=== PATIENT | female | born 1985 | race Caucasian/White ===

== ENCOUNTER 2016-12-07 15:09 | Emergency (ER) | payer MEDICAID ==
[~2016-12-07] VITALS: Ht 160 cm; Wt 54.4 kg
--- NOTE | 2016-12-07 15:30 | Emergency Room Report ---
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 N Clinical Suspician of Infection? N Mental Status: 1 - Regular (Normal Baseline) Sepsis Risk:Low Sepsis Risk Have you (or family members/close friends) recently traveled outside the [place]? N If Yes, where/when: Have you had exposure to infectious disease within the past month? TB? Other? Specify: Patient is brought in by police the police were called for agitation per report at a recovery center. The police state her report that the patient was drinking alcohol and took some suboxone. The patient states she took some Seroquel and some Xanax she tells me she took several pills of each but that she is not suicidal. She states she doesn't know when she took them today. She states she doesn't want to tell me how much alcohol she drank. He denies any pain she states she is upset that her service dog is not here. States she has history of PTSD. He does not tell me what substance she was at the recovery center for. Denies any pain denies any homicidal or suicidal ideations and denies hearing any voices or hallucinations. ALLERGIES Coded Allergies: Unable to Assess (12/07/16) History Medical History General More? Yes Additional hx: UTD, PT NON-COOPERATIVE Immunization Hx Ped.Immunizations UTD Yes DT/Tetanus 1-4 Years Ago Surgical Hx Previous Surgery?Y CHARGE ENTRY Hx LMP N/A Social History Smoking Hx Smoker: Unknown if Ever Smoked Tobacco: No Review of Systems All Other Systems Reviewed and Negative Physical Exam Vital Signs Vital Signs Date Time Temp Pulse Resp B/P Pulse O2 O2 Flow FiO2 Ox Delivery Rate 12/07 1515 98.0 72 18 137/84 98 General Appearance: Nontoxic Head: Normocephalic, without obvious abnormality, atraumatic. Eyes: conjunctiva/corneas clear ENT: Mucous membranes moist. Neck: No jugular venous distention. Cardiac: regular rate and rhythm Lungs: Clear to auscultation bilaterally Abdomen: Nontender, Nondistended, positive bowel sounds, no rebound : No CVA tenderness Extremities: no edema Musculoskeletal: No chest wall tenderness Skin: No rashes or lesions to exposed skin. Neurologic: Alert. No gross focal deficits Psychiatric: Anxious affect (Mary BUSH, Ryan) General Appearance normal appearance Respiratory Status No: respiratory distress. Cardiovascular normal exam Neurologic alert Medical Decision Making LABS/Meds/Orders Pt receiving controlled substance in ED? No Benedict was queried for this patient? No Comment ER staff states etoh less than 300 is ok for residential per protocol Results/Orders Laboratory Tests 12/07/16 1735: Opiates Screen NEGATIVE, Urine Methadone Screen NEGATIVE, Barbiturates NEGATIVE, Phencyclidine Screen NEGATIVE, Amphetamines Screen NEGATIVE, Benzodiazepines Screen NEGATIVE, Cocaine Screen NEGATIVE, Marijuana (THC) Screen NEGATIVE, Urine Color YELLOW, Urine Appearance CLEAR, Urine pH 7.0, Ur Specific [place] 1.010, Urine Protein NEGATIVE, Urine Ketones NEGATIVE, Urine Blood NEGATIVE, Urine Nitrate NEGATIVE, Urine Bilirubin NEGATIVE, Urine Urobilinogen 0.2, Ur Leukocyte Esterase NEGATIVE, Urine RBC OCC, Urine WBC 20-50, Ur Squamous Epith Cells TNTC, Urine Bacteria 4+, Urine Glucose NEGATIVE 12/07/16 1635: Sodium 143, Potassium 3.7, Chloride 108 H, Carbon Dioxide 29, BUN 8, Creatinine 0.6, Estimated Creat Clear 119, Estimated GFR (MDRD) 118, Glucose 100, Calcium 8.7, Total Bilirubin 0.3, AST 39 H, ALT 32, Alkaline Phosphatase 110, Total Protein 8.0, Albumin 4.5, Globulin 3.5 H, Albumin/Globulin Ratio 1.3, WBC 8.9, RBC 4.54, Hgb 14.3, Hct 43.4, MCV 95.6, RDW 14.0, Plt Count 394, MPV 7.9, Gran % 47.3, Gran # 4.2, Lymphocytes % 41.5, Monocytes % 5.7, Eosinophils % 4.5, Basophils % 1.0, Lymphocytes # 3.7, Monocytes # 0.5, Eosinophils # 0.4, Basophils # 0.1, PUBS MCHC 32.9, MCH 31.5 H, Salicylates 5.0, Acetaminophen 0 L, Alcohols 294 H Current Medication Orders Sig/Masoud Start time Last Medication Dose Route Stop Time Status Admin Thiamine HCl 0 .STK-MED ONE 12/07 1754 DC .ROUTE Thiamine HCl 100 MG ONCE ONE 12/07 1730 DC 12/07 PO 12/07 1731 1801 Orders Procedure Date/time Status CULTURE, URINE 12/07 173 Active URINALYSIS/COMPLETE 12/07 1540 Complete SALICYLATE 12/07 1540 Complete URINE 12/07 1540 Complete DRUG ABUSE SCREEN (TRIAGE) 12/07 1540 Complete COMPLETE METABOLIC PANEL 12/07 1540 Complete CBC WITH AUTO DIFF 12/07 1540 Complete BASIC METABOLIC PROFILE 12/07 1540 Complete ALCOHOL 12/07 1540 Complete Acetaminophen 12/07 1540 Complete Departure Departure Time of Disposition 1805 Disposition DC/XFER Other Type Institution Clinical Impression Primary Impression: Alcohol intoxication Qualifiers: Complication of substance-induced condition: uncomplicated Qualified Code: F10.920 - Alcohol use, unspecified with intoxication, uncomplicated Condition STABLE Patient Instructions DI for Alcohol Abuse Additional Instructions followup with your family doctor folllow up with the substance abuse clinic. pt is medically clear for residential Discharge Counseling Counseled pt/family regarding diagnosis, test results, medications/RX, home care, follow up needs ED Critical Care Critical Care No at 1807
--- NOTE | 2016-12-07 15:30 | Emergency Room Report ---
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 N Clinical Suspician of Infection? N Mental Status: 1 - Regular (Normal Baseline) Sepsis Risk:Low Sepsis Risk Have you (or family members/close friends) recently traveled outside the [place]? N If Yes, where/when: Have you had exposure to infectious disease within the past month? TB? Other? Specify: Patient is brought in by police the police were called for agitation per report at a recovery center. The police state her report that the patient was drinking alcohol and took some suboxone. The patient states she took some Seroquel and some Xanax she tells me she took several pills of each but that she is not suicidal. She states she doesn't know when she took them today. She states she doesn't want to tell me how much alcohol she drank. He denies any pain she states she is upset that her service dog is not here. States she has history of PTSD. He does not tell me what substance she was at the recovery center for. Denies any pain denies any homicidal or suicidal ideations and denies hearing any voices or hallucinations. ALLERGIES Coded Allergies: Unable to Assess (12/07/16) History Medical History General More? 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 Eyes: conjunctiva/corneas clear ENT: Mucous membranes moist. Neck: No jugular venous distention. Cardiac: regular rate and rhythm Lungs: Clear to auscultation bilaterally Abdomen: Nontender, Nondistended, positive bowel sounds, no rebound : No CVA tenderness Extremities: no edema Musculoskeletal: No chest wall tenderness Skin: No rashes or lesions to exposed skin. Neurologic: Alert. No gross focal deficits Psychiatric: Anxious affect (Mary BUSH, Ryan) General Appearance normal appearance Respiratory Status No: respiratory distress. Cardiovascular normal exam Neurologic alert Medical Decision Making LABS/Meds/Orders Pt receiving controlled substance in ED? No Benedict was queried for this patient? No Comment ER staff states etoh less than 300 is ok for nursing home per protocol Results/Orders Laboratory Tests 12/07/16 1735: Opiates Screen NEGATIVE, Urine Methadone Screen NEGATIVE, Barbiturates NEGATIVE, Phencyclidine Screen NEGATIVE, Amphetamines Screen NEGATIVE, Benzodiazepines Screen NEGATIVE, Cocaine Screen NEGATIVE, Marijuana (THC) Screen NEGATIVE, Urine Color YELLOW, Urine Appearance CLEAR, Urine pH 7.0, Ur Specific [place] 1.010, Urine Protein NEGATIVE, Urine Ketones NEGATIVE, Urine Blood NEGATIVE, Urine Nitrate NEGATIVE, Urine Bilirubin NEGATIVE, Urine Urobilinogen 0.2, Ur Leukocyte Esterase NEGATIVE, Urine RBC OCC, Urine WBC 20-50, Ur Squamous Epith Cells TNTC, Urine Bacteria 4+, Urine Glucose NEGATIVE 12/07/16 1635: Sodium 143, Potassium 3.7, Chloride 108 H, Carbon Dioxide 29, BUN 8, Creatinine 0.6, Estimated Creat Clear 119, Estimated GFR (MDRD) 118, Glucose 100, Calcium 8.7, Total Bilirubin 0.3, AST 39 H, ALT 32, Alkaline Phosphatase 110, Total Protein 8.0, Albumin 4.5, Globulin 3.5 H, Albumin/Globulin Ratio 1.3, WBC 8.9, RBC 4.54, Hgb 14.3, Hct 43.4, MCV 95.6, RDW 14.0, Plt Count 394, MPV 7.9, Gran % 47.3, Gran # 4.2, Lymphocytes % 41.5, Monocytes % 5.7, Eosinophils % 4.5, Basophils % 1.0, Lymphocytes # 3.7, Monocytes # 0.5, Eosinophils # 0.4, Basophils # 0.1, PUBS MCHC 32.9, MCH 31.5 H, Salicylates 5.0, Acetaminophen 0 L, Alcohols 294 H Current Medication Orders Sig/Masoud Start time Last Medication Dose Route Stop Time Status Admin Thiamine HCl 0 .STK-MED ONE 12/07 1754 DC .ROUTE Thiamine HCl 100 MG ONCE ONE 12/07 1730 DC 12/07 PO 12/07 1731 1801 Orders Procedure Date/time Status CULTURE, URINE 12/07 173 Active URINALYSIS/COMPLETE 12/07 1540 Complete SALICYLATE 12/07 1540 Complete URINE 12/07 1540 Complete DRUG ABUSE SCREEN (TRIAGE) 12/07 1540 Complete COMPLETE METABOLIC PANEL 12/07 1540 Complete CBC WITH AUTO DIFF 12/07 1540 Complete BASIC METABOLIC PROFILE 12/07 1540 Complete ALCOHOL 12/07 1540 Complete Acetaminophen 12/07 1540 Complete Departure Departure Time of Disposition 1805 Disposition DC/XFER Other Type Institution Clinical Impression Primary Impression: Alcohol intoxication Qualifiers: Complication of substance-induced condition: uncomplicated Qualified Code: F10.920 - Alcohol use, unspecified with intoxication, uncomplicated Condition STABLE Patient Instructions DI for Alcohol Abuse Additional Instructions followup with your family doctor folllow up with the substance abuse clinic. pt is medically clear for nursing home Discharge Counseling Counseled pt/family regarding diagnosis, test results, medications/RX, home care, follow up needs ED Critical Care Critical Care No at 1807
[2016-12-07 16:49] LABS: HEMOGLOBIN 14.3 g/dL (12.2-16.2); LYMPH # 3.7 K/mm3 (0.7-4.5); LYMPH % 41.5 % (10-50.0)
[2016-12-07 17:47] LABS: URINE BILIRUBIN - DIPSTICK NEGATIVE (NEG); URINE BLOOD NEGATIVE (NEG)
[2016-12-07 17:55] LABS: AMPHETAMINES/METAMPHETAMINES NEGATIVE ng/mL (<1000); URINE SQUAMOUS CELLS TNTC #/hpf (0-5)
[2016-12-07 18:14] VITALS: BP 122/87
== END 2016-12-07 18:15 | disposition other institution (70) ==
LOC: ER 15:09
PROVIDERS: Emergency Medicine
DX: Z02.89 Encounter for other administrative examinations (principal); F10.920 Alcohol use, unspecified with intoxication, uncomplicated; Y90.8 Blood alcohol level of 240 mg/100 ml or more; F43.12 Post-traumatic stress disorder, chronic